=== PATIENT | male | born 1990 | race African-American/Black ===

== ENCOUNTER 2023-04-12 08:15 | Emergency (ER) | payer OTHER ==
[2023-04-12 08:19] VITALS: BP 163/100; PULSE 71; RESP 18; TEMP 97; BMI 23.5
[2023-04-12] MEDS ORDERED: IBUPROFEN 600 MG TABLET (FP) PO ONE ×2 (09:09→09:11)
== END 2023-04-12 10:10 | disposition home or self-care (01) ==
LOC: JER 08:15
DX: S99.922A Unspecified injury of left foot, initial encounter (principal); W18.41XA Slipping, tripping and stumbling without falling due to stepping on object, initial encounter; Y92.000 Kitchen of unspecified non-institutional (private) residence as the place of occurrence of the external cause
CPT/HCPCS: 73610-TC-LT-FY; 73630-TC-LT; 99283-25